=== PATIENT | male | born 1985 | race Caucasian/White ===

== ENCOUNTER 2021-11-10 19:31 | Emergency (ER) | payer OTHER ==
[~2021-11-10] VITALS: Ht 172.7 cm; Wt 79.4 kg
[2021-11-10] MEDS ORDERED: SUBOXONE 8 MG-1 EACH SL (19:37)
[2021-11-10] MEDS ORDERED: Doxycycline Mo100 M1 PO (20:18)
== END 2021-11-10 21:27 | disposition home or self-care (01) ==
LOC: ER 19:31
DX: L03.114 Cellulitis of left upper limb (principal); Z79.52 Long term (current) use of systemic steroids
CPT/HCPCS: A9270

== ENCOUNTER → 2021-11-11 | Outpatient (CLI) | payer OTHER ==
[~2021-11-11] MED LIST: Doxycycline Mo100 M1 PO; SUBOXONE 8 MG-1 EACH SL
[2021-11-11 12:39] LABS: Bun/Creatinine Ratio 14.1 (12.0-20.0); Calcium, Blood 8.8 mg/dL (8.5-10.1); Creatinine, Blood 0.78 mg/dL (0.60-1.20); Potassium, Blood 3.6 mmol/L (3.5-5.5)
[2021-11-11 12:45] LABS: BASOPHILS ABSOLUTE AUTO 0.05 K/mm3 (0.00-0.23); BASOPHILS PERCENT AUTO 0 % (0-2); EOSINOPHILS ABSOLUTE AUTO 0.11 K/mm3 (0.00-0.68); EOSINOPHILS PERCENT AUTO 1 % (0-6); Hematocrit 38.6 % (37.0-53.0); Hemoglobin 13.4 g/dL (13.5-17.5); IMMATURE GRAN ABSOLUTE AUTO 0.04 K/mm3 (0.00-0.10); IMMATURE GRAN PERCENT AUTO 0 % (0-1); LYMPHOCYTES ABSOLUTE AUTO 1.85 K/mm3 (0.84-5.20); LYMPHOCYTES PERCENT AUTO 16 % (21-46); MONOCYTES ABSOLUTE AUTO 0.94 K/mm3 (0.16-1.47); MONOCYTES PERCENT AUTO 8 % (4-13); Mean Corpuscular HGB 31.2 pg (26.0-34.0); Mean Corpuscular HGB Conc 34.7 g/dL (31.5-36.5); Mean Corpuscular Volume 90 fL (80-100); Mean Platelet Volume 10.2 fL (9.1-12.4); NEUTROPHILS ABSOLUTE AUTO 8.42 K/mm3 (1.96-9.15); NEUTROPHILS PERCENT AUTO 74 % (41-73); Platelet Count 243 K/mm3 (150-400); RDW Coefficient Variation 12.7 % (11.7-14.2); RDW Standard Deviation 41.7 fL (35.1-46.3); White Blood Cell Count 11.41 K/mm3 (4.00-11.30)
== END | disposition home or self-care (01) ==
LOC: LAB SHORT 12:32 → LAB 12:32
PROVIDERS: Chiropractor
DX: L03.114 Cellulitis of left upper limb (principal)
CPT/HCPCS: 80048; 85025